=== PATIENT | male | born 1975 | race African-American/Black ===

== ENCOUNTER 2020-11-20 07:37 | Emergency (ER) | payer OTHER ==
[2020-11-20 07:57] VITALS: BP 120/81; PULSE 85; TEMP 97.8; BMI 21.9
[2020-11-20] MEDS ORDERED: LIDOCAINE 5% TOPICAL PATCH TP ONE (08:28)
[2020-11-20] MEDS ORDERED: LIDOCAINE 5% TOPICAL PATCH ONE (08:29)
[2020-11-20] MEDS ORDERED: LIDOCAINE PATCH REMOVAL MC ONE (22:00)
== END 2020-11-20 10:20 | disposition home or self-care (01) ==
LOC: JER 07:37
DX: M54.5 Low back pain (principal)
CPT/HCPCS: 99283-25

== ENCOUNTER 2021-06-19 05:12 | Emergency (ER) | payer OTHER ==
[2021-06-19 05:39] VITALS: TEMP 97.9; BMI 25.8
[2021-06-19] MEDS ORDERED: ACETAMINOPHEN 500 MG TABLET (FP) PO ONE (06:34)
[2021-06-19 07:14] VITALS: BP 125/74
[2021-06-19 07:22] LABS: BASO % 0.6 % (0-2.0); EOS % 0.3 % (0-4.5); HEMATOCRIT 23.4 % (35.4-49); HEMOGLOBIN 8.5 GM/dL (11.7-16.9); LYMPH % 11.7 % (8-40); MCHC 36.4 g/dl (32.0-35.9); MEAN PLT VOLUME 7.8 fl (7.5-11.1); NEUT % 80.4 % (42.8-82.8); PLATELET COUNT 421 10^3/uL (134-434); RBC 1.98 M/mm3 (4.00-5.60); RDW 15.5 % (11.9-15.9); WHITE BLOOD COUNT 8.6 K/mm3 (4.0-10.0)
[2021-06-19 07:23] VITALS: PULSE 88
[2021-06-19 07:25] LABS: INR 1.18 (0.83-1.09); PROTHROMBIN TIME (PATIENT) 13.6 SEC (9.7-13.0)
[2021-06-19 07:27] LABS: ACTIVATED PTT 26.7 SECONDS (25.2-36.5); CALCIUM 9.1 mg/dL (8.5-10.1)
[2021-06-19 07:28] LABS: ALBUMIN 3.7 g/dl (3.4-5.0)
[2021-06-19 07:33] LABS: BILIRUBIN,TOTAL 2.2 mg/dL (0.2-1); TOT PROT 7.4 g/dl (6.4-8.2)
[2021-06-19] MEDS ORDERED: ACETAMINOPHEN 500 MG TABLET (FP) ONE (07:48)
[2021-06-19 09:36] LABS: ANISOCYTOSIS 2+; MACROCYTOSIS 2+; TARGET CELLS 1+
== END 2021-06-19 10:55 | disposition home or self-care (01) ==
LOC: JER 05:12
DX: M25.471 Effusion, right ankle (principal)
CPT/HCPCS: 36415; 73610-TC-RT-FY; 80053; 85025; 85610; 85730; 93971-TC; 99284-25